=== PATIENT | female | born 2000 | race African-American/Black ===

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

== ENCOUNTER 2020-04-25 11:56 | Emergency (ER) | payer OTHER ==
[~2020-04-25] VITALS: Ht 165.1 cm; Wt 90.9 kg
[~2020-04-25 11:56] MED LIST changes: +BENZ100C PO; +VENTOLIN HFA18 GM INH
[2020-04-25 12:24] VITALS: BP 142/85
[2020-04-25] MEDS ORDERED: IV NORMAL SALINE 1000ML BAG 1,000 ML IV SCH (12:37)
--- NOTE | 2020-04-25 12:50 | PHYS DOC ---
Past Medical History Past Medical History: Other Additional Past Medical Histor: LYMPHADEMA Past Surgical History: Appendectomy Smoking Status: Never Smoker Alcohol Use: None Drug Use: None General Adult EDM: Chief Complaint: ABDOMINAL PAIN HPI: HPI: Patient is a 19 year old Female who presents with right flank pain that does not radiate for the last 2 days and vaginal discharge that she states is white and has an odor. She denies dysuria symptoms, sexually transmitted disease concerns, abdominal pain, chest pain, shortness of air, fever, nausea, vomiting, diarrhea, headache, dizziness, vision changes, numbness or tingling. 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 She rates her pain at a 5 out of 10 at this time. Review of Systems: Review of Systems: Constitutional: Denies fever or chills. [] Eyes: Denies change in visual acuity. [] HENT: Denies nasal congestion or sore throat. [] Respiratory: Denies cough or shortness of breath. [] Cardiovascular: Denies chest pain or edema. [] GI: Denies abdominal pain, nausea, vomiting, bloody stools or diarrhea. [] : Denies dysuria. Vaginal discharge [] Musculoskeletal: Right flank back pain or joint pain. [] Integument: Denies rash. [] Neurologic: Denies headache, focal weakness or sensory changes. [] Endocrine: Denies polyuria or polydipsia. [] Lymphatic: Denies swollen glands. [] Psychiatric: Denies depression or anxiety. [] Heart Score: Risk Factors: Risk Factors: DM, Current or recent (<one month) smoker, HTN, HLP, family history of CAD, obesity. Risk Scores: Score 0 - 3: 2.5% MACE over next 6 weeks - Discharge Home Score 4 - 6: 20.3% MACE over next 6 weeks - Admit for Clinical Observation Score 7 - 10: 72.7% MACE over next 6 weeks - Early Invasive Strategies Current Medications: Current Medications Medications (Trade) Dose Ordered Sig/Tatum Start Time Stop Time Status Last Admin Dose Admin Sodium Chloride 1,000 ml @ 1,000 mls/hr Q1H 04/25/20 12:37 04/25/20 13:36 Allergies: Allergies: Allergies Coded Allergies Type Severity Reaction Last Updated Verified No Known Drug Allergies 09/21/17 No Physical Exam: PE: Constitutional: Well developed, well nourished, no acute distress, non-toxic appearance. [] HENT: Normocephalic, atraumatic, bilateral external ears normal, oropharynx moist, no oral exudates, nose normal. [] Eyes: PERRLA, EOMI, conjunctiva normal, no discharge. [] Neck: Normal range of motion, no tenderness, supple, no stridor. [] Cardiovascular:Heart rate regular rhythm, no murmur [] Lungs & Thorax: Bilateral breath sounds clear to auscultation [] Abdomen: Bowel sounds normal, soft, no tenderness, no masses, no pulsatile masses. [] Skin: Warm, dry, no erythema, no rash. [] Back: No tenderness, no CVA tenderness. [] Extremities: No tenderness, no cyanosis, no clubbing, ROM intact, chronic 4+ lymph edema bilateral lower extremities. [] Neurologic: Alert and oriented X 3, normal motor function, normal sensory function, no focal deficits noted. [] Psychologic: Affect normal, judgement normal, mood normal. [] Current Patient Data: Vital Signs: Vital Signs Date Time Temp Pulse Resp B/P (MAP) Pulse Ox O2 Delivery O2 Flow Rate FiO2 04/25/20 12:24 98.4 84 18 142/85 (104) 100 Room Air 98.4 EKG: EKG: [] Radiology/Procedures: Radiology/Procedures: [] Impression: [facility] [address] [place] [address] IMAGING REPORT Signed PATIENT: WOJCIECH NEGRON MACCOUNT: [id number] : 2000 LOCATION: ER AGE: 19 SEX: F EXAM STATUS: REG ER ORD. PHYSICIAN: BROOKE ENGLISH APRN REASON: RIGTH FLANK PAIN H/O APPENDECTOMY STATES "SHE THINKS SHE HAS A YEAST INF" PROCEDURE: CT ABDOMEN PELVIS WO CONTRAST INDICATION: Reason: RIGTH FLANK PAIN H/O APPENDECTOMY STATES "SHE THINKS SHE HAS A YEAST INF" / Spl. Instructions: / History: COMPARISON: August 2017 TECHNIQUE: Axial CT images obtained through the abdomen and pelvis without contrast. One or more of the following individualized dose reduction techniques were utilized for this examination: 1. Automated exposure control; 2. Adjustment of the mA and/or kV according to patient size; 3. Use of iterative reconstruction technique. FINDINGS: There is some mild groundglass opacities at the lung bases with some relative lucency within portion of the lung. Could be from small airway inflammation or air trapping. Abdominal aorta is not aneurysmal. No intrahepatic bile duct dilation. Limited assessment of the pancreas without contrast. Spleen is unremarkable. No hydronephrosis. Urinary bladder is partially distended. Within the left adnexa there is a suspected low-density lesion within the ovary measuring up to about 35 mm. Uterus is visualized. Suture line at the cecum which could be from post appendectomy changes. No dilated loops of bowel to suggest obstruction. Small fat-containing umbilical hernia. IMPRESSION: * No evidence of bowel obstruction or hydronephrosis. * There is a suspected low-density left ovarian lesion. If more complete characterization is desired ultrasound could better evaluate. * There are some mild groundglass opacities as well as more lucent parenchyma at the lung bases. Could be from small airway inflammation or air trapping. Electronically signed by: Ruth Young MD (04/25/2020 2:22 PM) [id number] DICTATED and SIGNED BY: RUTH YOUNG MD DATE: 04/25/201421 Course & Med Decision Making: Course & Med Decision Making Pertinent Labs and Imaging studies reviewed. (See chart for details) COVID-19 CRITERIA: The patient was evaluated during the global COVID-19 pandemic, and that diagnosis was suspected/considered upon their initial presentation. Their evaluation, treatment and testing was consistent with current guidelines for patients who present with complaints or symptoms that may be related to COVID-19. See HPI. Patient refusing to be treated for sexually transmitted diseases tod ay. Abdomen is soft and nontender. No CVA tenderness. Skin pink warm and dry. Vital signs within normal limits. Afebrile. Speaks in full complete sentences. She states approximately a month to month and half ago she was treated for cellulitis and sent home on antibiotic. She states that she has been done with antibiotics for couple weeks. Patient has bilateral lower extrem ity 4+ lymphedema of which she states is normal for her. Pelvic Exam: Tree Expert present Abdomen: Nontender External Genitalia: Normal Skin Speculum: Normal vaginal mucosa, white cervical discharge Bimanual: No adnexal masses or tenderness, No CMT Blood work is unremarkable. She is afebrile. Patient does have a yeast infection. I will give her antibiotic medication for that. She also has some groundglass opacities at the CT still. I am going to send her home with dexamethasone and azithromycin. [] Nilam Disclaimer: Nilam Disclaimer: This electronic medical record was generated, in whole or in part, using a voice recognition dictation system. COVID-19 Patient Risks: Age 65 or older: No Sign of co-morbidity: Yes Exp to person + for COVID: No Exp to PUI: No Travel from affected area: No Lower respiratory symptoms: Yes Fever: No Other: No PPE Use: Full PPE with N95 mask or PAPR: Yes Departure Departure Impression: Primary Impression: Person under investigation for COVID-19 Additional Impressions: Ovarian cyst Qualified Codes: N83.202 - Unspecified ovarian cyst, left side Vaginal yeast infection Disposition: HOME, SELF-CARE Condition: STABLE Referrals: UNKNOWN PCP NAME (PCP) Patient Instructions: Ovarian Cyst, [id number], Yeast Infection of the Skin, [id number] Additional Instructions: Use medication as prescribed. Drink plenty of fluids. Follow-up with your primary care provider if needed. You have been tested for or diagnosed with COVID-19. It is an infection caused by a new type of coronavirus. COVID-19 will cause cold-like or mild flu symptoms in most. It can cause more severe symptoms like problems breathing in some. There is no treatment for COVID-19. The body will clear the infection over time. Self-care will help to ease discomfort. Steps to Take: Self-Care Rest as needed. Healthy habits may help you feel better. Steps include: Choose healthy foods including fruits and vegetables. Drink water throughout the day. Get plenty of sleep each night. If you smoke, try to quit. It may ease breathing. Avoid alcohol. Keep Others Healthy The virus can spread to others. Droplets are released every time you sneeze or cough. The droplets can get into the mouth, nose, or eyes of people near you and lead to infection. To lower the chances of spreading COVID-19 to others: Stay at home until your doctor has said it is safe to leave. If you tested positive this will mean staying isolated until both of the following are true: At least 7 days have passed since the start of illness. You are free of fever for at least 72 hours without the use of medicine. During this time: - Avoid public areas, events, or transportation. Do not return to work or school until your doctor has said it is safe to do so. - Call ahead if you need to go to a medical center. Let them know you may have COVID-19. It will help them guide you where to go. They may also ask you to wear a facemask when you come to the office. - If you call for emergency medical services, let them know you may have COVID- 19. While at home: - Try to avoid close contact with others. Stay about 6 feet away. - If possible, spend most of your time in a separate room from others. - Use a face mask if you will be in close contact with others such as sharing a room or vehicle. - Have someone wipe down common surfaces in the home. Use household cognos architect every day on areas like doorknobs, counters, or sinks. - Cough or sneeze into a tissue. Throw the tissue away right after use. If a tissue is not available, cough or sneeze into your elbow. - Wash your hands often. Wash them after sneezing or coughing. Use soap and water and wash for at least 20 seconds. Alcohol based hand supervisor bottle house cleaners can be used if soap and water is not available. - Do not prepare food for others. Avoid sharing personal items like forks, spoons, or toothbrushes. - Avoid close contact with pets while you are sick. There is no evidence of the virus passing to pets. This is a safety step until more is known about this virus. Isolation can be frustrating. Social interaction can help. Keep in touch with friends and family through phone and tech options. You can still interact with others in your home, just keep a safe distance of about 6 feet. Follow-up: Your doctors office will check in with you to see if there are any changes in your health. You may be asked to keep track of symptoms to share with them. They will also let you know when you are clear to be in public again. Problems to Look Out For: Contact your doctor if your recovery is not going as you expect. Get emergency care if you have problems such as: - Trouble breathing - Nonstop chest pain or pressure - Changes in awareness, confusion, or problems waking - Lips or face have bluish color - Worsening of symptoms If you think you have an emergency, call for emergency medical services right away. As taken from [facility] Scripts Methylprednisolone (MEDROL) 4 Mg Tab.ds.pk 1 PKG PO UD, #1 PKG Prov: BROOKE ENGLISH APRN 04/25/20 Azithromycin (AZITHROMYCIN TABLET) 250 Mg Tablet 1 PKG PO UD for 5 Days, #6 TAB 0 Refills 2 the first day followed by 1 for days 2-5 Prov: BROOKE ENGLISH APRN 04/25/20 Miconazole Nitrate (MONISTAT 3) 15 Gm Crm.pf.figueroa 1 APPFUL VG QHS for 3 Days, #15 GM 0 Refills Prov: BROOKE ENGLISH APRN 04/25/20 BROOKE ENGLISH APRN Apr 25, 2020 12:50
[2020-04-25 12:52] LABS: BILIRUBIN,URINE NEGATIVE (NEG); CLARITY,URINE CLEAR; COLOR,URINE YELLOW; NITRITE,URINE NEGATIVE (NEG); PROTEIN,URINE NEGATIVE (NEG-TRACE); UROBILINOGEN,URINE 0.2 mg/dL (0.2 mg/dL)
[2020-04-25 12:59] LABS: BARBITURATES NEG (NEG); BENZODIAZEPINES NEG (NEG); CANNABINOIDS POS (NEG); COCAINE NEG (NEG); METHADONE NEG (NEG); OPIATES NEG (NEG); PHENCYCLIDINE NEG (NEG)
[2020-04-25 13:01] LABS: AMPHETAMINE/METHAMPHETAMINE NEG (NEG)
[2020-04-25 13:11] LABS: BASO # 0.1 x10^3/uL (0.0-0.2); BASO % 1 % (0-3); EOS # 0.1 x10^3/uL (0.0-0.7); EOS % 2 % (0-3); HEMATOCRIT 40.6 % (36.0-47.0); HEMOGLOBIN 13.4 g/dL (12.0-15.5); LYMPH # 2.5 x10^3/uL (1.0-4.8); LYMPH % 43 % (24-48); MEAN CORPUSCULAR HEMOGLOBIN 26 pg (25-35); MEAN CORPUSCULAR HGB CONC 33 g/dL (31-37); MEAN CORPUSCULAR VOLUME 78 fL (79-100); MONO # 0.3 x10^3/uL (0.0-1.1); MONO % 4 % (0-9); NEUT % 50 % (31-73); PLATELET COUNT 150 x10^3/uL (140-400); RED BLOOD COUNT 5.19 x10^6/uL (3.50-5.40); RED CELL DISTRIBUTION WIDTH 15.9 % (11.5-14.5); WHITE BLOOD COUNT 5.9 x10^3/uL (4.0-11.0)
[2020-04-25 13:12] LABS: BACTERIA,URINE MODERATE /HPF (0-FEW)
[2020-04-25 13:19] LABS: CALCIUM 8.9 mg/dL (8.5-10.1); CREATININE 0.7 mg/dL (0.6-1.0); GFR 129.1; POTASSIUM 3.6 mmol/L (3.5-5.1)
[2020-04-25 13:22] LABS: PROTHROMBIN TIME PATIENT 13.2 SEC (11.7-14.0)
[2020-04-25 13:25] LABS: ALBUMIN 3.4 g/dL (3.4-5.0); ALBUMIN/GLOBULIN RATIO 0.9 (1.0-1.7); TOTAL BILIRUBIN 0.6 mg/dL (0.2-1.0); TOTAL PROTEIN 7.4 g/dL (6.4-8.2)
[2020-04-25 13:36] LABS: U PREG PATIENT NEGATIVE (NEG)
--- NOTE | 2020-04-25 14:25 | RAD ---
INDICATION: Reason: RIGTH FLANK PAIN H/O APPENDECTOMY STATES "SHE THINKS SHE HAS A YEAST INF" / Spl. Instructions: / History: COMPARISON: August 2017 TECHNIQUE: Axial CT images obtained through the abdomen and pelvis without contrast. One or more of the following individualized dose reduction techniques were utilized for this examination: 1. Automated exposure control; 2. Adjustment of the mA and/or kV according to patient size; 3. Use of iterative reconstruction technique. FINDINGS: There is some mild groundglass opacities at the lung bases with some relative lucency within portion of the lung. Could be from small airway inflammation or air trapping. Abdominal aorta is not aneurysmal. No intrahepatic bile duct dilation. Limited assessment of the pancreas without contrast. Spleen is unremarkable. No hydronephrosis. Urinary bladder is partially distended. Within the left adnexa there is a suspected low-density lesion within the ovary measuring up to about 35 mm. Uterus is visualized. Suture line at the cecum which could be from post appendectomy changes. No dilated loops of bowel to suggest obstruction. Small fat-containing umbilical hernia. IMPRESSION: * No evidence of bowel obstruction or hydronephrosis. * There is a suspected low-density left ovarian lesion. If more complete characterization is desired ultrasound could better evaluate. * There are some mild groundglass opacities as well as more lucent parenchyma at the lung bases. Could be from small airway inflammation or air trapping. Electronically signed by: Puma Young MD (04/25/2020 2:22 PM) [id number]
[2020-04-25] MEDS ORDERED: MICO15CR7 VG (14:45)
[2020-04-25] MEDS ORDERED: AZIT250T6 PO (14:45)
[2020-04-25] MEDS ORDERED: METH4TAB2 PO (15:16)
--- NOTE | 2020-04-28 10:33 | NUR ---
IP: Informed pt of negative COVID test. Pt verbalized understanding.
[2020-04-29 17:10] LABS: GC PROBE Negative (Negative)
== END 2020-04-25 15:31 | disposition home or self-care (01) ==
LOC: ER 11:56
DX: N83.202 Unspecified ovarian cyst, left side (principal); B37.3 Candidiasis of vulva and vagina; Z20.828 Contact with and (suspected) exposure to other viral communicable diseases; Z90.89 Acquired absence of other organs
CPT/HCPCS: 36415; 74176; 80053; 80307; 81001; 81025; 83690; 85025; 85610; 87077; 87086; 87491; 87591; 96360; 99285; J7030; Q0111; U0003